=== PATIENT | female | born 1965 | race Caucasian/White ===

== ENCOUNTER 2017-09-16 00:43 | Emergency (ER) | payer OTHER ==
[~2017-09-16] VITALS: Ht 154.9 cm; Wt 80.1 kg
[~2017-09-16 00:43] MED LIST: AMLODIPINE BES2.5 MG PO; CALCITRIOL0.25 MCG PO; Coumadin,Jantoven PO; DRISDOL50000 UNIT PO; ERGOCALCIF50000 UNIT PO; Ecotrin PO; FERROUS SULFAT325 MG PO; IMITREX50 MG PO; JANTOVEN2.5 MG PO; JANTOVEN5 MG PO; JANTOVEN6 MG PO; NOHOMEMEDS; NORTRIPTYLINE H25 MG PO; NORTRIPTYLINE H50 MG PO; OMEPRAZOLE40 M1 PO; PHENERGAN12.5 M1 PO; PROMETHAZINE HC25 M1 PO; PROTONIX40 MG PO; RANITIDINE HCL150 MG PO; SUMATRIPTAN SU100 MG PO; TOPAMAX25 MG PO; TYLENOL WITH C1 EACH PO; VITAMIN D PO; Vitamin B-12 PO; WARFARIN SODIUM5 MG PO
[2017-09-16 01:15] LABS: HEMATOCRIT 41.2 % (36.0-46.0); HEMOGLOBIN 13.8 G/DL (11.9-15.5); MCH 27.4 PG (29.0-34.0); MCHC 33.5 G/DL (30.0-36.0); MCV 81.7 FL (83-99); PLATELET COUNT 352 K/uL (156-360); RBC DIS.WIDTH-CV 13.1 % (11.8-14.6); RBC DIS.WIDTH-SD 38.6 % (39-53); RED BLOOD COUNT 5.04 M/uL (3.80-5.20); WHITE BLOOD COUNT 7.6 K/uL (4.1-10.2)
[2017-09-16 01:25] LABS: CHLORIDE 106 mEq/L (99-109); POTASSIUM 3.5 mEq/L (3.7-5.4); SODIUM 142 mEq/L (136-147)
[2017-09-16 01:27] LABS: GLUCOSE 128 mg/dL (70-99)
[2017-09-16 01:31] LABS: CREATININE 1.2 mg/dL (0.6-1.3); GFR ESTIMATE (CALCULATED) 50 mL/min/
[2017-09-16 01:32] LABS: UREA NITROGEN (BUN) 16 mg/dL (9-23)
[2017-09-16 01:36] LABS: TROP-I INTERPRETATION NEGATIVE; TROPONIN-I < 0.01 ng/mL (0.0-0.30)
[2017-09-16 04:10] VITALS: BP 131/95
== END 2017-09-16 04:14 | disposition home or self-care (01) ==
LOC: EME 00:43
DX: R07.89 Other chest pain (principal); K21.9 Gastro-esophageal reflux disease without esophagitis; I10 Essential (primary) hypertension; I45.10 Unspecified right bundle-branch block; R94.31 Abnormal electrocardiogram [ECG] [EKG]; G43.909 Migraine, unspecified, not intractable, without status migrainosus; Z86.711 Personal history of pulmonary embolism; Z82.49 Family history of ischemic heart disease and other diseases of the circulatory system; Z90.49 Acquired absence of other specified parts of digestive tract
CPT/HCPCS: 71046; 80048; 84484; 85027; 93005; 99281; 99285